=== PATIENT | male | born 1960 | race Caucasian/White ===

== ENCOUNTER 2021-06-20 20:44 | Emergency (ER) | payer OTHER ==
[2021-06-21 18:12] LABS: SARS-CoV-2 PCR by NAA DETECTED (NotDetected)
== END 2021-06-20 21:19 | disposition home or self-care (01) ==
LOC: BURERS 20:44
DX: U07.1 COVID-19 (principal); I10 Essential (primary) hypertension; I44.2 Atrioventricular block, complete; F17.220 Nicotine dependence, chewing tobacco, uncomplicated
CPT/HCPCS: 99283; U0003; U0005